=== PATIENT | female | born 1950 | race Caucasian/White ===

== ENCOUNTER → 2018-05-01 16:30 | Outpatient (CLI) | payer MEDICARE, OTHER, SELFPAY ==
--- NOTE | 2018-05-01 | DI.MRI.S_ITS ---
PROCEDURE: MR FOOT RT WO/W CON INDICATIONS: PAIN IN RIGHT FOOT RHEUMATOID NODULE TECHNIQUE: Noncontrast coronal T1 spin echo and STIR, sagittal T1 spin echo with fat saturation and STIR, axial T1 spin echo and T2 fast spin echo with fat saturation. After the administration of contrast, axial/sagittal/coronal T1 spin echo with fat saturation through the right foot. COMPARISON: None. FINDINGS: Image quality: Excellent. Bones: The visualized bone marrow demonstrates normal signal on all sequences. The overlying cortex appears intact. No abnormal intraosseous enhancement. Soft tissues: No soft tissue masses are visualized. However there is ill-defined enhancement involving the plantar subcutaneous soft tissues of the fourth toe at the level of the fourth metatarsal head (at the lateral aspect). This measures approximately 1.1 cm on sagittal image 9 series 10. The scanned muscles demonstrate normal overall bulk and internal signal. Subcutaneous tissues appear normal as well. No abnormal soft tissue enhancement. IMPRESSION: Marrow signal changes and enhancement suggesting erosion of the medial aspect of the first metatarsal head. Please correlate clinically and with laboratory data for erosive arthropathies such as gout. Recommend further evaluation with dedicated foot radiographs Ill-defined enhancement involving the plantar soft tissues of the fourth toe as detailed above, at the level of the fourth metatarsal head. Findings are technically nonspecific. This could represent infectious cellulitis/phlegmon, reactive to early flexor tenosynovitis, or developing adventitial bursitis. Please correlate clinically. Dictated by: Oumar Hannon M.D. on 05/02/2018 at 10:01 Approved by: Oumar Hannon M.D. on 05/02/2018 at 10:16
== END ==
PROVIDERS: PCP Internal Medicine Rheumatology; Visit Provider Podiatrist
DX: M79.671 Pain in right foot (principal)
CPT/HCPCS: 73720; A9579

== ENCOUNTER → 2021-05-06 09:41 | Outpatient (CLI) | payer MEDICARE, OTHER, SELFPAY ==
--- NOTE | 2021-05-06 09:43 | DI.MRI.S_ITS ---
PROCEDURE: MR LUMBAR SPINE WO CON INDICATIONS: Spinal stenosis, lumbar region without neurogenic TECHNIQUE: Noncontrast sagittal T1 spin echo and T2 fast echo, sagittal STIR, axial T1 and T2 fast spin echo through the lumbar spine. In cases with scoliosis, additional coronal T2 fast spin echo may be performed. COMPARISON: [facility], CT, CT-IVP, 03/23/2011, 8:13. [facility], CR, XR LUMBAR SPINE WITH OBLIQUES, 04/27/2021, 13:57. FINDINGS: Image quality: Excellent. Alignment and Curvature: S shaped scoliotic curvature is seen, with a primary dextroconvex lumbar component. No focal AP alignment abnormality is seen. Bone Marrow: Marrow is of normal overall signal. Scattered foci are seen, which are hyperintense on T1-weighted and T2-weighted imaging, which are most consistent with benign vertebral body hemangiomas. The most prominent of these can be seen within the L4 vertebral body. No acute vertebral body compression fractures. Spinal Cord: Conus medullaris terminates at the L1 level. Visualized cord demonstrates normal signal and size. Paraspinous Soft Tissues: No paravertebral masses. T12-L1: Normal appearance. L1-L2: Moderate loss of disc height is seen. Loss of disc signal is seen. Mild generalized disc bulge is seen. No significant neural foraminal or central canal narrowing can be seen. L2-L3: Moderate loss of disc height is seen. Loss of disc signal is seen. Mild to moderate disc bulge is seen, with a mild central disc protrusion. There is a focal annular fissure seen posteriorly. Moderate bilateral neural foraminal narrowing is seen. Mild central canal narrowing is seen. L3-L4: The disc height is well-preserved. Loss of disc signal is seen at this level. Mild to moderate disc bulge is seen, with a mild central disc protrusion. Mild facet joint hypertrophy is seen. There is [id number]-pxyhwxjm right-sided and mild left-sided neural foraminal narrowing seen. Mild to moderate central canal narrowing is seen. L4-L5: The disc height is well-preserved. Loss of disc signal is seen at this level. Mild to moderate disc bulge is seen, with a mild central disc protrusion. There is a focal annular fissure seen posteriorly. There is hkem-fv-[id number] left-sided and mild right-sided neural foraminal narrowing seen. Moderate central canal narrowing is seen. L5-S1: Moderate loss of disc height is seen. Loss of disc signal is seen. Moderate disc bulge is seen, with a central disc extrusion, with mild inferior migration of the disc material. There is a focal annular fissure seen posteriorly. Mild to moderate facet hypertrophy is seen. There is mild right-sided and no left-sided neural foraminal narrowing seen. Moderate central canal narrowing is seen. IMPRESSION: Multiple levels of lumbar spine degenerative change are seen, which are overall worst at the L5-S1 level. Dictated by: Micheal Clayton M.D. on 05/06/2021 at 10:41 Approved by: Micheal Clayton M.D. on 05/06/2021 at 10:45
== END ==
PROVIDERS: PCP Physician Assistant; Referring Provider Physical Medicine & Rehabilitation Pain Medicine; Visit Provider Physical Medicine & Rehabilitation Pain Medicine
DX: M48.061 Spinal stenosis, lumbar region without neurogenic claudication (principal); M47.817 Spondylosis without myelopathy or radiculopathy, lumbosacral region; M47.816 Spondylosis without myelopathy or radiculopathy, lumbar region
CPT/HCPCS: 72148

== ENCOUNTER → 2021-08-23 11:55 | Outpatient (CLI) | payer MEDICARE, OTHER, SELFPAY ==
--- NOTE | 2021-08-23 11:57 | DI.MRI.S_ITS ---
PROCEDURE: MR THORACIC SPINE WO CON INDICATIONS: Pain in thoracic spine TECHNIQUE: Noncontrast sagittal T1 spine echo and T2 fast spin echo, sagittal STIR, axial T1 and T2 fast spin echo through the thoracic spine. COMPARISON: [facility], CT, KIDNEY/ URETER/BLADDER, 11/02/2010, 16:25. [facility], MR, MR LUMBAR SPINE WO CON, 05/06/2021, 10:03. [facility], CT, CT-IVP, 03/23/2011, 8:13. [facility], CR, XR THORACIC SPINE 2 VIEWS, 08/10/2021, 14:09. [facility], MR, C-SPINE WITHOUT CONTRAST, 05/03/2015, 14:18. FINDINGS: Image quality: Excellent. Alignment and Curvature: Accentuated thoracic kyphosis is seen. No focal AP alignment abnormality is seen. Bone Marrow: Marrow is of normal overall signal. No acute vertebral body compression fractures. Spinal Cord: Visualized spinal cord is normal in size and signal. Paraspinous Soft Tissues: Within the left posterior pleural space, there is a focus that is uniformly hyperintense on T1 weighted and T2 weighted imaging, which has the appearance of a lipoma, as on series 9, image 26 that measures up to 2 cm. This is off of the field of view of the 2011 CT examinations. Miscellaneous: Lower cervical spine degenerative change is partially seen. At the T4-T5 level, there is a central disc protrusion, with mild central canal narrowing and mild mass effect upon the ventral spinal cord. No neural foraminal narrowing is seen. Milder degenerative changes are seen elsewhere. IMPRESSION: Focal T4-T5 degenerative change is seen, with a central disc protrusion. Milder degenerative changes are seen elsewhere. 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 Dictated by: Micheal Clayton M.D. on 08/23/2021 at 12:21 Approved by: Micheal Clayton M.D. on 08/23/2021 at 12:26
== END ==
PROVIDERS: PCP Physician Assistant; Referring Provider Physical Medicine & Rehabilitation Pain Medicine; Visit Provider Physical Medicine & Rehabilitation Pain Medicine
DX: M47.814 Spondylosis without myelopathy or radiculopathy, thoracic region (principal); M51.24 Other intervertebral disc displacement, thoracic region
CPT/HCPCS: 72146

== ENCOUNTER → 2022-09-04 09:27 | Outpatient (CLI) | payer MEDICARE, OTHER, SELFPAY ==
--- NOTE | 2022-09-04 09:31 | DI.RAD.S_ITS ---
PROCEDURE: FL BARIUM SWALLOW INDICATIONS: DYSPHAGIA/GERD COMPARISON: None. FINDINGS: Function: There is normal esophageal peristalsis. Moderate listed it gastroesophageal reflux is seen with contrast reaching midportion of esophageal lumen. There is normal transit of a calibrated barium tablet through the esophagus into the stomach. Morphology: Air-contrast images demonstrate normal mucosal morphology. Single contrast views show no esophageal strictures, extrinsic mass effects, or diverticula. Limited images of the stomach demonstrate normal appearance. IMPRESSION: Moderate gastroesophageal reflux is noted during the study. No hiatal hernia. No gross intraluminal filling defect or external mass compression within esophagus. Dictated by: Sage Smyth M.D. on 09/04/2022 at 14:16 Approved by: Sage Smyth M.D. on 09/04/2022 at 14:17
== END ==
PROVIDERS: PCP Physician Assistant; Referring Provider Nurse Practitioner Family; Visit Provider Nurse Practitioner Family
DX: R13.10 Dysphagia, unspecified (principal); K21.9 Gastro-esophageal reflux disease without esophagitis
CPT/HCPCS: 74220

== ENCOUNTER → 2023-06-07 16:42 | Outpatient (CLI) | payer MEDICARE, OTHER, SELFPAY ==
--- NOTE | 2023-06-07 | DI.MRI.S_ITS ---
PROCEDURE: MRFOOT LT WO CON INDICATIONS: LEFT ANKLE PAIN/LEFT MEDIAL FOOT PAIN TECHNIQUE: Noncontrast sagittal T1 spin echo and T2 fast spin echo with fat saturation, long-axis T1 spin echo and T2 fast spin echo with fat saturation, short-axis T1 spin echo and T2 fast spin echo with fat saturation through the forefoot. COMPARISON: None. FINDINGS: Image quality: Excellent. Bones and joints: Rfcz-lw-xgttnhta hallux valgus is seen. No bone marrow contusions or metatarsal stress fractures. Moderate midfoot and forefoot joint osteoarthritic changes are seen particularly involving 1st MTP joint with significant joint space narrowing, subchondral sclerosis and marginal osteophyte formation. Osteoarthritic changes also seen involving articulation between 1st metatarsal head and sesamoid bones with edema involving lateral sesamoid bone without discrete fracture line. Soft tissues: The visualized plantar foot muscles demonstrate normal signal and bulk. Visualized flexor and extensor tendons appear intact, without tenosynovitis. The distal insertions of the peroneus brevis and longus tendons appear intact. The principal Lisfranc ligament appears intact. No soft tissue ganglion cysts or bursal fluid collections. Sagittal images demonstrate no evidence for plantar plate tears. IMPRESSION: 1. Osteoarthritic changes throughout midfoot and forefoot joints most notably involving 1st MTP joint and articulation between 1st metatarsal head and sesamoids. Qrwh-gz-paowhhvj hallux valgus. Edema within lateral sesamoid of 1st metatarsal head concerning for sesamoiditis. No gross acute fracture or dislocation. No metatarsal stress fractures. 2. Extensor and flexor tendons of midfoot and forefoot are grossly intact. Ms. Brennick ligament is intact. Dictated by: Sage Smyth M.D. on 06/11/2023 at 10:09 Approved by: Sage Smyth M.D. on 06/11/2023 at 10:11
--- NOTE | 2023-06-07 | DI.MRI.S_ITS ---
PROCEDURE: MR ANKLE LT WO CON INDICATIONS: LEFT ANKLE PAIN/LEFT MEDIAL FOOT PAIN TECHNIQUE: Noncontrast sagittal T1 spin echo and T2 fast spin echo with fat saturation, axial proton density fast spin echo and T2 fast spin echo with fat saturation, coronal T1 spin echo and T2 fast spin echo with fat saturation through the ankle/hindfoot. COMPARISON: [facility], CR, XR ANKLE 3+ VIEWS LEFT, 05/23/2023, 10:09. FINDINGS: Image quality: Excellent. Bones and joints: Yyqc-he-lnpxohxg midfoot and hindfoot joint osteoarthritic changes are seen with joint space narrowing and subchondral sclerosis. Subcortical cystic changes are noted involving inferior and medial periphery of mid talus adjacent to subtalar joint with surrounding edema suggestive of a small osteochondral injury in this area. No other marrow signal. No hindfoot coalitions. No osteochondral injuries of the talar dome. Small to moderate amount of tibiotalar joint effusion is seen, no gross loose bodies. Medial structures: The posterior tibialis tendon is thickened at the level of mid to distal talus and talonavicular joint. The flexor digitorum longus, and flexor hallucis longus tendons are intact. The posterior tibial neurovascular bundle appears normal within the tarsal tunnel, without extrinsic mass effect. The deltoid ligament and spring ligament are mildly thickened. Lateral structures: The anterior talofibular, calcaneofibular, and posterior talofibular ligaments appear intact. More superiorly, the anterior and posterior tibiofibular ligaments appear thickened with intrasubstance T2 hyperintense signal. The tibiofibular syndesmosis is normal in width at 2 mm or less. The peroneus longus and brevis tendons are thickened with intrasubstance T2 hyperintense signal at the level of lateral malleolus tip extending to the level of calcaneocuboid joint with small amount of fluid distending tendon sheath. Adjacent bony peroneal tubercle and retrotrochlear prominence are normal in size. The sinus tarsi demonstrates normal fatty signal, without edema, fibrosis, or cyst formation. Visualized sinus tarsi components (cervical ligament, interosseous talocalcaneal ligament, roots of the inferior extensor retinaculum) appear normal. The calcaneonavicular and calcaneocuboid components of the bifurcate ligament appear intact. The dorsal calcaneocuboid ligament appears intact. Anterior structures: The tibialis anterior, extensor hallucis longus, and extensor digitorum longus tendons appear intact. The dorsal talonavicular ligament appears intact. Posterior and plantar structures: Achilles tendon is intact. Medial and lateral bands of the plantar fascia are mildly thickened. No abductor digiti quinti muscle atrophy to suggest Jj neuropathy. IMPRESSION: 1. Midfoot and forefoot joint osteoarthritis. No fracture or dislocation. Small osteochondral injury involving anterior inferior portion of talus adjacent to subtalar joint. No osteochondral injuries of talar dome. Small to moderate amount of joint effusion, no gross loose bodies. 2. Tendinosis involving posterior tibialis tendon at the level of mid to distal talus and talonavicular joint. 3. Moderate grade tendinosis and tenosynovitis involving peroneus tendons at the level of lateral malleolus tip extending to the level of calcaneocuboid joint. 4. Low-grade sprain of deltoid ligament and spring ligament. 5. Low-grade intrasubstance partial-thickness tear involving anterior and posterior tibial fibular ligaments. 6. Mildly thickened plantar fascia suggestive of low-grade plantar fasciitis. Dictated by: Sage Smyth M.D. on 06/11/2023 at 10:11 Approved by: Sage Smyth M.D. on 06/11/2023 at 10:18
== END ==
PROVIDERS: PCP Physician Assistant; Referring Provider Podiatrist; Visit Provider Podiatrist
DX: M25.572 Pain in left ankle and joints of left foot (principal); M20.12 Hallux valgus (acquired), left foot; R60.0 Localized edema; M19.072 Primary osteoarthritis, left ankle and foot; M65.872 Other synovitis and tenosynovitis, left ankle and foot; S93.422A Sprain of deltoid ligament of left ankle, initial encounter; S93.492A Sprain of other ligament of left ankle, initial encounter; S93.432A Sprain of tibiofibular ligament of left ankle, initial encounter
CPT/HCPCS: 73718; 73721

== ENCOUNTER → 2023-12-04 10:40 | Outpatient (CLI) | payer MEDICARE, OTHER, SELFPAY ==
--- NOTE | 2023-12-04 10:42 | DI.CT.S_ITS ---
PROCEDURE: CT CHEST WO CON INDICATIONS: Benign lipomatous neoplasm TECHNIQUE: Noncontrast 5 mm thick sections acquired from the pulmonary apices to the posterior costophrenic angles. 1 mm lung window, 5 mm thick coronal and sagittal and 7 mm axial MIP reformats were then acquired. For radiation dose reduction, the following was used: automated exposure control, adjustment of mA and/or kV according to patient size. COMPARISON: [facility], , CT ANGIO CHEST, 09/27/2022, 11:47. FINDINGS: Image quality: Diagnostic. Lower Neck: No enlarged lymph nodes. Thyroid: No thyroid nodules which require sonographic follow up, per consensus guidelines. Axillae: No enlarged lymph nodes. Chest Wall: Unremarkable. Bones: Unremarkable. Lungs and Pleura: No pneumothorax or pleural effusions. No consolidation or suspicious nodules. Pleural based lipoma is redemonstrated within the left lung and is unchanged from the prior study. Heart: Heart size is normal. No pericardial effusion. Thoracic Vessels: The ascending thoracic aorta measures 4.2 cm on the current study which is increased when compared with the CT dated September 27, 2022. Mild atheromatous calcifications are present at the thoracic arch and the descending thoracic aorta. Mediastinum and Eileen: No enlarged lymph nodes. Esophagus: No wall thickening. No hiatal hernia. Upper Abdomen: Visualized upper abdomen solid organs and bowel loops appear normal. IMPRESSION: 1. No acute airspace opacities or suspicious pulmonary nodules or lesions. 2. Mild aneurysmal dilatation of the ascending thoracic aorta which is new when compared with the prior CT from September 27, 2022. Annual surveillance recommended. 3. Stable left-sided pleural based lipoma. Dictated by: Yanely Hollingsworth M.D. on 12/04/2023 at 15:55 Approved by: Yanely Hollingsworth M.D. on 12/04/2023 at 15:59
== END ==
LOC: CT 10:41
PROVIDERS: PCP Physician Assistant; Referring Provider Internal Medicine Critical Care Medicine; Visit Provider Internal Medicine Critical Care Medicine
DX: D17.9 Benign lipomatous neoplasm, unspecified (principal)
CPT/HCPCS: 71250

== ENCOUNTER → 2024-02-22 09:25 | Outpatient (CLI) | payer MEDICARE, OTHER, SELFPAY ==
--- NOTE | 2024-02-22 09:27 | DI.CT.S_ITS ---
PROCEDURE: CT ANGIO CHEST INDICATIONS: Chest pain, unspecified TECHNIQUE: After the administration of intravenous contrast, 2 mm thick sections acquired from the pulmonary apices to the posterior costophrenic angles. 3-dimensional maximum intensity projection (MIP) coronal and sagittal reformats were then acquired through the thorax. For radiation dose reduction, the following was used: automated exposure control, adjustment of mA and/or kV according to patient size. COMPARISON: [facility], , CT ANGIO CHEST, 09/27/2022, 11:47. FINDINGS: Image quality: Diagnostic. Pulmonary arteries: Pulmonary arteries are normal in size, and demonstrate no intraluminal filling defects to suggest central pulmonary embolism. Lower Neck: No enlarged lymph nodes. Thyroid: No thyroid nodules which require sonographic follow up, per consensus guidelines. Axillae: No enlarged lymph nodes. Chest Wall: Unremarkable. Bones: Unremarkable. Lungs and Pleura: No pneumothorax or pleural effusions. No consolidation or suspicious nodules. Unchanged appearance of 1.5 x 2.1 cm left posterior pleural lipoma since 2021 CT chest from [facility]. Heart: Heart size is normal. No pericardial effusion. Thoracic Vessels: No aortic dissection. Mild ectasia of the ascending aorta is better visualized on previous similar contrast enhanced images specifically, the CT dated 09/27/2022 and appears unchanged measuring 4 cm. Mediastinum and Eileen: No enlarged lymph nodes. Esophagus: No wall thickening. No hiatal hernia. Upper Abdomen: Nonvisualized gallbladder with surgical clips in the right upper quadrant. IMPRESSION: 1. No CT findings to explain patient's symptomology 2. Minimal aneurysm of the ascending aorta at 4 cm appears unchanged since 2021; recommend yearly follow-up. Dictated by: Austen Strickland M.D. on 02/22/2024 at 13:57 Approved by: Austen Strickland M.D. on 02/22/2024 at 15:16
--- NOTE | 2024-02-23 01:26 | DI.NM.S_ITS ---
DATE OF SERVICE: 02/22/2024 PROCEDURE: Pharmacologic vasodilator stress and rest myocardial perfusion imaging with gating to assess ejection fraction and regional wall motion. ORDERING PROVIDER: Samina Gunter M.D. INDICATIONS: The patient is a 73-year-old female with substernal chest discomfort. CARDIAC STRESS: Per protocol, 0.4 mg of regadenoson was infused, augmented by walking on the treadmill. With this, she had a normal hemodynamic response, achieving a maximum heart rate of 108 BPM (72% of her predicted maximum). She had mild dyspnea and nausea but no chest discomfort. Her resting ECG showed sinus rhythm with PACs, at times in a bigeminal pattern, but normal ST segments. The PACs resolved with stress and there were no significant ST-segment shifts with stress. Per protocol, 25.0 millicuries of technetium-99m Myoview was injected and she was imaged 15 minutes later using a gated SPECT acquisition protocol. Earlier in the day while at rest, she was injected with 9.9 millicuries of technetium-99m Myoview and was imaged 10 minutes later, again using a gated SPECT acquisition protocol. FINDINGS: 1. Raw data. There is fairly good myocardial tracer uptake although moderate breast shadows are seen that clearly produce some attenuation. The lung/heart ratio is normal at 0.41 with a normal TID ratio of 1.00. 2. Quantitated gated SPECT: Post-stress ejection fraction is estimated at 80% without any focal wall motion abnormality, and specifically the anterior wall has brisk contractility. The resting ejection fraction is 71% with a normal resting end-diastolic volume of 101 mL. 3. Myocardial perfusion imaging: Post-stress supine images show a mild to moderate perfusion defect in the distal anterior septum, extending to but excluding the apex, in a pattern consistent with breast attenuation artifact, supported by its complete resolution on the prone images which reveal a normal, homogeneous perfusion pattern. There are no other perfusion defects. The resting images show an identical perfusion pattern without any improvement to the perfusion defect or elsewhere. IMPRESSION: 1. Normal myocardial perfusion study. 2. Mild to moderate fixed distal anteroseptal perfusion defect that completely resolves on prone imaging, most consistent with breast attenuation artifact. There is no compelling evidence for any myocardial ischemia or previous myocardial infarction. 3. Normal left ventricular size and systolic function without focal wall motion abnormality. 4. No angina or ECG evidence of ischemia with pharmacologic vasodilator stress. Frequent PACs, at times in a bigeminal pattern, most prominent at rest but resolving with stress and no other arrhythmias. Leslie Pablo - IFEOMA/alice/cathie doc#: [id number]/job#: [id number] dd: 02/22/2024 16:40:00 dt: 02/23/2024 01:04:00 DICTATING MD/COPIES TO: Bubba Brandon MD; Samina Gunter M.D. COPIES MNE: ROSA;
== END ==
PROVIDERS: PCP Physician Assistant; Referring Provider Internal Medicine Cardiovascular Disease; Visit Provider Internal Medicine Cardiovascular Disease
DX: R07.9 Chest pain, unspecified (principal); I49.1 Atrial premature depolarization; I71.21 Aneurysm of the ascending aorta, without rupture
CPT/HCPCS: 71275; 78452; 93017; A9502; J2785; Q9967

== ENCOUNTER → 2024-06-02 11:07 | Outpatient (CLI) | payer MEDICARE, OTHER, SELFPAY ==
--- NOTE | 2024-06-02 | DI.US.S_ITS ---
PROCEDURE: US RENAL COMPLETE INDICATIONS: Serum creatinine above reference range TECHNIQUE: Real-time scanning was performed of the kidneys and bladder, with image documentation. COMPARISON: None. FINDINGS: Kidneys: Kidneys are normal in size. Right kidney measures 11.4 cm long; left kidney measures 10.9 cm long. Right renal cortical thickness is 1.2 cm; left renal cortical thickness is 1.1 cm. Renal cortical echotexture is normal. No hydronephrosis or nephrolithiasis. No suspicious solid mass lesions. Bladder: Not evaluated Miscellaneous: No free pelvic fluid. IMPRESSION: Unremarkable ultrasound the kidneys Approved by: Ryan Dumas M.D. on 06/02/2024 at 21:42
== END ==
PROVIDERS: PCP Physician Assistant; Referring Provider Internal Medicine; Visit Provider Internal Medicine
DX: R79.89 Other specified abnormal findings of blood chemistry (principal)
CPT/HCPCS: 76770

== ENCOUNTER → 2025-10-20 07:56 | Outpatient (CLI) | payer MEDICARE, OTHER, SELFPAY ==
--- NOTE | 2025-10-20 07:58 | DI.MRI.S_ITS ---
PROCEDURE: MR THORACIC SPINE WO CON INDICATIONS: Hx of scoliosis, cervical radiculopathy, sciatic p TECHNIQUE: Noncontrast sagittal T1 spine echo and T2 fast spin echo, sagittal STIR, and T2 fast spin echo through the thoracic spine. COMPARISON: [facility], , MR THORACIC SPINE WO CON, 08/23/2021, 12:24. FINDINGS: Image quality: Excellent. Alignment and Curvature: Minimal levo scoliotic curvature. Bone Marrow: Marrow is of normal overall signal. No acute vertebral body compression fractures. Spinal Cord: Visualized spinal cord is normal in size and signal. Paraspinous Soft Tissues: Again seen fat intensity lesion within the left posterior pleural space which is stable compared to prior, presumed lipoma. Miscellaneous: Mild degenerative changes with disc desiccation and mild height loss with minimal posterior disc bulges. No central canal or neural foraminal stenosis. IMPRESSION: Mild degenerative changes of the thoracic spine as described above. Minimal levo scoliotic curvature. Dictated by: Raehel Hill M.D. on 10/20/2025 at 11:06 Approved by: Raheel Hill M.D. on 10/20/2025 at 11:11
--- NOTE | 2025-10-20 07:58 | DI.MRI.S_ITS ---
PROCEDURE: MR CERVICAL SPINE WO CON INDICATIONS: Hx of scoliosis, cervical radiculopathy, sciatic p TECHNIQUE: Noncontrast sagittal T1 spin echo and T2 fast spin echo, sagittal STIR, foraminal oblique sagittal T2 fast spin echo, and axial gradient echo or T2 fast spin echo through the cervical spine. COMPARISON: None. FINDINGS: Image quality: Excellent. Alignment and Curvature: Straightening and minimal reversal the normal cervical lordosis. Mild anterolisthesis of C3 on C4. Bone Marrow: Marrow demonstrates normal overall signal. Minimal degenerative endplate changes. Spinal Cord: Visualized spinal cord has normal size and signal. No cerebellar tonsillar herniation. Paraspinous Soft Tissues: No paravertebral masses. Prevertebral soft tissues are normal in thickness. C2-C3: Mild facet and uncovertebral arthropathy. No significant central canal or neural foraminal stenosis. C3-C4: Facet and uncovertebral arthropathy. Disc desiccation and minimal posterior disc osteophyte complex. No central canal stenosis. Moderate left and no right neural foraminal stenosis. C4-C5: Disc desiccation. No central canal or neural foraminal stenosis. C5-C6: Disc desiccation height loss. Posterior disc osteophyte complex. Facet and uncovertebral arthropathy. No significant central canal stenosis. Mild bilateral neural foraminal stenosis. C6-C7: Disc desiccation is severe height loss. Mild posterior disc osteophyte complex. Facet and uncovertebral arthropathy. No central canal stenosis. Mild bilateral neural foraminal stenosis. C7-T1: Disc desiccation and mild posterior disc osteophyte complex. No central canal or neural foraminal stenosis. IMPRESSION: 1. Multilevel degenerative changes of the cervical spine as described above. 2. No significant central canal stenosis. 3. Moderate left neural foraminal stenosis at C3-C4. Mild neural foraminal stenosis at other levels. Dictated by: Raheel Hill M.D. on 10/20/2025 at 11:11 Approved by: Raheel Hill M.D. on 10/20/2025 at 11:16
--- NOTE | 2025-10-20 07:58 | DI.MRI.S_ITS ---
PROCEDURE: MR LUMBAR SPINE WO CON INDICATIONS: Hx of scoliosis, cervical radiculopathy, sciatic p TECHNIQUE: Noncontrast sagittal T1 spin echo and T2 fast echo, sagittal STIR, and T2 fast spin echo through the lumbar spine. In cases with scoliosis, additional coronal T2 fast spin echo may be performed. COMPARISON: [facility], MR, MR LUMBAR SPINE WO CON, 05/06/2021, 10:03. FINDINGS: Image quality: Excellent. Alignment and Curvature: Dextroscoliotic curvature. Bone Marrow: Marrow is of normal overall signal. No acute vertebral body compression fractures. Spinal Cord: Conus medullaris terminates at the L1 level. Visualized cord demonstrates normal signal and size. Paraspinous Soft Tissues: No paravertebral masses. Stable appearance of extrarenal pelvis on the right. T12-L1: Normal appearance. L1-L2: Disc desiccation and moderate height loss. Mild disc bulge. Mild facet arthropathy. No central canal or neural foraminal stenosis. L2-L3: Disc desiccation height loss. Mild disc bulge. Facet arthropathy. [id number] bilateral neural foraminal stenosis. No significant central canal stenosis. L3-L4: Disc desiccation and mild diffuse disc bulge. Facet arthropathy. Mild central canal stenosis. No significant neural foraminal stenosis. L4-L5: Disc desiccation and mild disc bulge with small central superimposed disc protrusion and posterior annular tear. Facet arthropathy. Mild central canal stenosis. No significant neural foraminal stenosis. L5-S1: Disc desiccation and small central disc protrusion with posterior annular tear. Facet arthropathy. No significant central canal stenosis. Mild right and no left neural foraminal stenosis. IMPRESSION: Multilevel degenerative changes of the lumbar spine as described above which are similar in appearance compared to prior. No high-grade central canal or neural foraminal stenosis. Dictated by: Raheel Hill M.D. on 10/20/2025 at 11:16 Approved by: Raheel Hill M.D. on 10/20/2025 at 11:30
== END ==
LOC: MRI 07:57
PROVIDERS: PCP Physician Assistant
DX: M47.22 Other spondylosis with radiculopathy, cervical region (principal); M48.02 Spinal stenosis, cervical region; M47.814 Spondylosis without myelopathy or radiculopathy, thoracic region; M47.26 Other spondylosis with radiculopathy, lumbar region; M47.27 Other spondylosis with radiculopathy, lumbosacral region; M54.30 Sciatica, unspecified side; M41.9 Scoliosis, unspecified; M54.9 Dorsalgia, unspecified; G89.29 Other chronic pain; Z87.39 Personal history of other diseases of the musculoskeletal system and connective tissue
CPT/HCPCS: 72141; 72146; 72148